=== PATIENT | female | born 1950 | race Asian ===

== ENCOUNTER → 2017-10-23 | Outpatient (CLI) | payer MEDICARE, MEDICAID | END | disposition home or self-care (01) | LOC: RADPV 08:54 | PROVIDERS: ATTEND Internal Medicine | DX: M51.37 Other intervertebral disc degeneration, lumbosacral region (principal); M81.0 Age-related osteoporosis without current pathological fracture | CPT/HCPCS: 72100 ==

== ENCOUNTER → 2017-11-15 | Outpatient (CLI) | payer MEDICARE, MEDICAID | END | disposition home or self-care (01) | LOC: RADPV 13:23 | PROVIDERS: ATTEND Internal Medicine | DX: Z13.820 Encounter for screening for osteoporosis (principal); M85.88 Other specified disorders of bone density and structure, other site; M81.0 Age-related osteoporosis without current pathological fracture | CPT/HCPCS: 77080 ==

== ENCOUNTER → 2021-11-08 | Outpatient (CLI) | payer MEDICARE, MEDICAID | END | disposition home or self-care (01) | LOC: RADPV 10:22 | PROVIDERS: ATTEND Internal Medicine | DX: M85.88 Other specified disorders of bone density and structure, other site (principal); M81.8 Other osteoporosis without current pathological fracture; M81.0 Age-related osteoporosis without current pathological fracture | CPT/HCPCS: 77080 ==